=== PATIENT | female | born 1945 | race Two or more races ===

== ENCOUNTER → 2024-08-17 | Outpatient (CLI) | payer MEDICARE, BC, SELFPAY ==
[2024-08-17 11:27] LABS: Basophils # (Auto) 0.1 Thou/mm3 (0.0-0.2); Basophils % (Auto) 1 % (0-2.5); Eosinophils # (Auto) 0.3 Thou/mm3 (0.0-0.5); Eosinophils % (Auto) 3 % (0-10); Hemoglobin 13.3 g/dL (12.0-16.0); Immature Granulocytes % (Auto) 0 % (0-0); Immature Granulocytes Auto 0.01 Thou/mm3 (0.00-0.00); Lymphocytes # (Auto) 4.9 Thou/mm3 (1.0-4.8); Lymphocytes % (Auto) 51 % (10-50); Mean Corpuscular HGB Conc 32.4 g/dl (31.0-37.0); Mean Corpuscular Hemoglobin 29.8 pg (25.0-35.0); Mean Corpuscular Volume 92 fL (80-100); Monocytes # (Auto) 0.7 Thou/mm3 (0.0-0.8); Monocytes % (Auto) 7 % (0-12); Neutrophils # (Auto) 3.8 Thou/mm3 (1.8-7.7); Neutrophils % (Auto) 39 % (37-80); Nucleated Red Blood Cell % 0 /100 WBC (0); Platelet Count 227 Thou/mm3 (140-440); RDW Standard Deviation 45.5 fL (36.4-46.3); Red Blood Count 4.46 Miln/mm3 (4.00-5.20); White Blood Count 9.8 Thou/mm3 (3.6-11.0)
[2024-08-17 11:37] LABS: Glucose Estimated Average 154 mg/dL (80-131)
[2024-08-17 11:44] LABS: Alanine Aminotransferase 14 U/L (10-49); Albumin, Serum 4.8 gm/dL (3.4-4.8); Alkaline Phosphatase 124 U/L (46-116); Anion Gap 9 (7-16); Aspartate Amino Transferase 23 U/L (0-34); BUN/Creatinine Ratio 18 Ratio (12-20); Bilirubin,Total 0.3 mg/dL (0.3-1.2); Blood Urea Nitrogen 30 mg/dL (9-23); Calcium 9.8 mg/dL (8.3-10.6); Calcium (Corrected) 9.8 mg/dL (8.5-10.1); Cardiac Risk Estimate 2.6 RATIO (3.7-5.6); Chloride 105 mMol/L (98-107); Cholesterol 248 mg/dL (132-200); Creatinine (Component) 1.7 mg/dL (0.6-1.3); Free T4 (Free Thyroxine) 1.38 ng/dL (0.89-1.76); Globulin 2.4 gm/dL (2.3-3.5); Glucose 108 mg/dL (74-106); HDL Cholesterol 97 mg/dL (40-60); LDL Cholesterol,Calculated 120 mg/dL (0-130); Osmolality,Calculated 288 (275-295); Potassium 4.2 mMol/L (3.4-5.1); Sodium 141 mMol/L (136-145); Thyroid Stimulating Hormone 0.93 uIU/mL (0.55-4.78); Total Protein 7.2 gm/dL (5.7-8.2); Triglycerides 155 mg/dL (30-150); eGFR 31 See Note
== END | disposition home or self-care (01) ==
PROVIDERS: PCP Family Medicine; Referring Provider Family Medicine; Visit Provider Family Medicine
DX: N18.4 Chronic kidney disease, stage 4 (severe) (principal); E03.9 Hypothyroidism, unspecified; E11.65 Type 2 diabetes mellitus with hyperglycemia
CPT/HCPCS: 36415; 80053; 80061; 83036; 84439; 84443; 85025

== ENCOUNTER → 2024-11-21 | Outpatient (CLI) | payer MEDICARE, BC, SELFPAY ==
[2024-11-21 14:57] LABS: Anion Gap 11 (7-16); BUN/Creatinine Ratio 24 Ratio (12-20); Blood Urea Nitrogen 43 mg/dL (9-23); Calcium 9.6 mg/dL (8.3-10.6); Carbon Dioxide 24.5 mMol/L (20.0-31.0); Chloride 107 mMol/L (98-107); Creatinine (Component) 1.8 mg/dL (0.6-1.3); Glucose 319 mg/dL (74-106); Osmolality,Calculated 305 (275-295); Potassium 4.1 mMol/L (3.4-5.1); Sodium 142 mMol/L (136-145); eGFR 29 See Note
[2024-11-21 15:23] LABS: Glucose Estimated Average 177 mg/dL (80-131); Hemoglobin A1C 7.8 % Hgb (4.8-6.0)
== END | disposition home or self-care (01) ==
LOC: COPL 14:06
PROVIDERS: PCP Family Medicine; Referring Provider Family Medicine; Visit Provider Family Medicine
DX: E11.65 Type 2 diabetes mellitus with hyperglycemia (principal); E78.00 Pure hypercholesterolemia, unspecified; N18.32 Chronic kidney disease, stage 3b; E11.22 Type 2 diabetes mellitus with diabetic chronic kidney disease
CPT/HCPCS: 36415; 80048; 83036

== ENCOUNTER → 2025-02-07 | Outpatient (CLI) | payer MEDICARE, BC, SELFPAY ==
[2025-02-07 12:45] LABS: Glucose Estimated Average 180 mg/dL (80-131); Hemoglobin A1C 7.9 % Hgb (4.8-6.0)
[2025-02-07 12:49] LABS: Anion Gap 11 (7-16); BUN/Creatinine Ratio 21 Ratio (12-20); Blood Urea Nitrogen 38 mg/dL (9-23); Calcium 9.4 mg/dL (8.3-10.6); Carbon Dioxide 24.8 mMol/L (20.0-31.0); Chloride 106 mMol/L (98-107); Creatinine (Component) 1.8 mg/dL (0.6-1.3); Glucose 185 mg/dL (74-106); Osmolality,Calculated 297 (275-295); Potassium 4.2 mMol/L (3.4-5.1); Sodium 142 mMol/L (136-145); eGFR 29 See Note
== END | disposition home or self-care (01) ==
PROVIDERS: PCP Family Medicine; Referring Provider Family Medicine; Visit Provider Family Medicine
DX: E11.22 Type 2 diabetes mellitus with diabetic chronic kidney disease (principal); N18.4 Chronic kidney disease, stage 4 (severe); E11.65 Type 2 diabetes mellitus with hyperglycemia
CPT/HCPCS: 36415; 80048; 83036

== ENCOUNTER 2025-04-18 01:44 | Emergency (ER) | payer MEDICARE, BC, SELFPAY ==
[2025-04-18 02:04] VITALS: BP 127/76; PULSE 72; RESP 18; TEMP 36.4; O2SAT 98
--- NOTE | 2025-04-18 03:00 | PD.EDSOB ---
ED SOB =RME/HPI General Chief Complaint: General Adult/Misc Complain Stated Complaint: FAMILY STATES PT WOKE IN A PANIC Time Seen by Provider: 04/18/25 02:49 Arrival date/time: 04/18/25 01:44 RME / HPI RME / HPI Narrative: See MDM for HPI documentation. Related Data Home Medications ?Medication ?Instructions ?Recorded ?Confirmed insulin lispro 100 unit/mL 4 - 10 unit subcut BID 09/22/18 03/31/22 subcutaneous solution (Humalog U-100 Insulin) omeprazole 40 mg capsule,delayed 40 mg PO QDAY 10/08/21 03/31/22 release insulin glargine 100 unit/mL (3 10 unit subcut QAM 03/31/22 03/31/22 mL) subcutaneous pen (Lantus Solostar U-100 Insulin) levothyroxine 50 mcg tablet 1 tab PO QAM 03/31/22 03/31/22 linagliptin 5 mg tablet (Tradjenta) 1 tab PO QDAY 03/31/22 03/31/22 paroxetine HCl 10 mg tablet 1 tab PO QDAY 03/31/22 03/31/22 pen needle, diabetic 32 gauge x 03/31/22 03/31/2232 (BD Chelita 2nd Gen Pen Needle) Previous Rx's ?Medication ?Instructions ?Recorded aspirin 81 mg capsule 81 mg PO QDAY #30 caps 04/01/22 albuterol sulfate 90 mcg/actuation 2 puff inhalation Q6H PRN 04/18/25 aerosol inhaler shortness of breath or wheezing #8.5 grams azithromycin 500 mg tablet 500 mg PO QDAY 3 days #3 tabs 04/18/25 (Zithromax TRI-AYAAN) cefdinir 300 mg capsule 300 mg PO BID #14 caps 04/18/25 Allergies Allergy/AdvReac Type Severity Reaction Status Date / Time No Known Allergies Allergy Verified 04/18/25 01:52 Review of Systems Review of Systems Systems Reviewed: All systems reviewed, normal except as documented Past Medical History Past Medical History NEUROLOGIC: Positive Neurological Disorders (neck pain); Negative Cerebrovascular Accident, Transient Ischemic Attacks (TIA), Dementia, Alzheimer's Disease, Parkinson's Disease, Brain Tumor, Meningitis, Seizures, Epilepsy, Multiple Sclerosis, Cerebral Palsy, Amyotrophic Lateral Sclerosis (ALS/Deirdre Gehrig's), Guillain-[place] Syndrome, Spina Bifida, Paralysis, Peripheral Neuropathy, Yepez's Palsy, Subdural Hematoma, Migraine, Head Trauma, Spinal Cord Injury or Traumatic Brain Injury CARDIAC: Positive Cardiac Disorders and Hypertension; Negative Myocardial Infarction, Cardiac Arrhythmia, Atrial Fibrillation, Angina, Heart Murmur, Coronary Artery Disease, Atherosclerotic Heart Disease, Peripheral Vascular Disease, Hypercholesterolemia, Aneurysm, Congestive Heart Failure, Congenital Heart Disease, Valvular Heart Disease, Rheumatic Fever, Cardiomyopathy, Edema, Pericarditis, Cellulitis, Deep Vein Thrombosis, Hypotension or Varicose Veins RESPIRATORY: Positive Bronchitis and Pneumonia (covid); Negative Chronic Obstructive Pulmonary Disease (COPD), Asthma, Emphysema, Pulmonary Fibrosis, Cystic Fibrosis, Tuberculosis, Pulmonary Embolism, Pulmonary Edema or Sleep Apnea GASTROINTESTINAL: Positive Gastrointestinal Disorders, Gall Bladder Disease (cholecystectomy) and Diverticulosis; Negative Hepatitis, Cirrhosis, Pancreatitis, Celiac Disease, Gastrointestinal Bleed, Esophageal Varices, Oates's Esophagus, Colitis, Ulcerative Colitis, Diverticulitis, Ulcer, Colorectal Cancer, Irritable Bowel, Crohn's Disease, Obstructive Bowel, Hiatal Hernia, Hemorrhoids, Gastroesophageal Reflux Disease or Obesity GENITOURINARY: Positive Genitourinary Disorders and Renal Disease; Negative Kidney Stones, Polycystic Kidney Disease, Neurogenic Bladder, Inguinal Hernia, Dialysis, Prostate Cancer or Benign Prostatic Hyperplasia REPRODUCTIVE: Positive Previous Pregnancies (); Negative Breast Cancer, Endometriosis, Pelvic Inflammatory Disease, Testicular Cancer or Uterine Prolapse MUSCULOSKELETAL: Positive Musculoskeletal Disorders and Arthritis; Negative Muscular Dystrophy, Myasthenia Gravis, Marfan's Syndrome, Bone Cancer, Rheumatoid Arthritis, Osteoporosis, Degenerative Disk Disease, Gout, Scoliosis, Carpal Tunnel Syndrome, Fibromyalgia, Fractures, Degenerative Joint Disease, Osteomyelitis or Poliovirus ENT: Positive Cataracts; Negative Glaucoma, Blind, Retinal Detachment, Macular Degeneration, Ear Infection, Deafness, Head Trauma or Eye Prosthesis ENDOCRINE: Positive Endocrine Disorders, Diabetes Mellitus Type 2 and Hyperthyroidism; Negative Diabetes Mellitus Type 1, Hypoglycemia, Beeson's Syndrome, Morrow's Disease, Hypothyroidism, Parathyroid Disease, Pituitary Disease, Systemic Lupus Erythematosus, Syndrome of Inappropriate Antidiuretic Hormone (SIADH), Adrenal Disease or Graves' Disease HEMATOLOGIC: Positive Blood Disorders and Anemia; Negative Leukemia, Hemophilia, Thalassemia, Sickle Cell Disease or Clotting Problems PSYCHO/SOCIAL: Positive Depression and Eating Disorder (very little intake); Negative Psychiatric Problems, Schizophrenia, Recreational Drug Use, Bipolar Disorder, Anxiety, Behavior Problems, Self-Mutilation, Attention Deficit Disorder, Attention Deficit Hyperactivity Disorder, Depression or Post Traumatic Stress Disorder OTHER HISTORY: Positive Hospitalization, Falls, Chicken Pox and Measles; Negative Autoimmune Disease, Down Syndrome, Autism, Developmental Delay, Shingles, Blood Transfusions, Anesthesia Reactions, Organ Transplant, Chemotherapy, Radiation Therapy, Hyperbaric Therapy, MRSA, VRSA, Vancomycin-Resistant Enterococci, Human Immunodeficiency Virus (HIV), Mumps, Rubella ([place]an Measles), Pertussis, Clostridium Difficile, Cancer, Breast Cancer, Cervical Cancer, Colorectal Cancer, Lung Cancer, Ovarian Cancer, Prostate Cancer or Testicular Cancer Family History FAMILY HISTORY: Positive Family Cardiac Disorders (MOTHER- HTN), Family Gastrointestinal Problems (colon cancer), Family Cancer (FATHER- PROSTATE, sister had stomach cancer) and Family Surgery (gallbladder surgeries, colon cancer removal in her father.); Negative Family Psychiatric Problems, Family Respiratory Disorders or Family Anesthesia Reaction Surgical History SURGICAL: Positive Abdominal Surgery, Lumpectomy (LEFT BREAST BX), Tubal Ligation and Section (X3); Negative Cardiac Surgery, Open Heart Surgery, Coronary Artery Bypass Graft, Valve Replacement, Vascular Surgery, Coronary Stent, Cardiac Catheterization, Pacemaker, Angiogram, Auto Implanted Cardiovert Defib, Carotid Endarterectomy, Endocrine Surgery, Thyroidectomy, Ear Surgery, Tympanostomy Tube, Eye Surgery, Nose Surgery, Oral Surgery, Tonsillectomy, Adenoidectomy, Cochlear Implant, Corneal Transplant, Throat Surgery, Tracheostomy, Gastric Bypass Surgery, Gastrostomy, Bowel Surgery, Joint Replacement, Amputation, Open Reduction Internal Fixation, Arthroscopy, Neurologic Surgery, Brain Shunt, Mastectomy, Hysterectomy or Organ Transplant Social History SMOKING STATUS: Never smoker SUBSTANCE USE: does not use ED Exam Narrative Physical exam: See [facility] for physical exam documentation. Course Quality Measures none Orders Category Date Time Status Bedside COVID-19 Antigen Test NOW Care 04/18/25 03:06 Completed Bedside Influenza A&B Antigen Test NOW Care 04/18/25 03:06 Completed EKG (ED ONLY) *Do not use* NOW Care 04/18/25 03:07 Completed Saline [Insert IV] NOW Care 04/18/25 03:06 Completed Straight [In and Out Catheter] X1 Care 04/18/25 03:[address] chest abdomen pelvis wo Stat Exams 04/18/25 03:[address] head/brain wo con Stat Exams 04/18/25 03:07 Completed EKG (ED Only) Stat Exams 04/18/25 03:07 Draft XR chest 1V portable Stat Exams 04/18/25 03:07 Completed BNP [B-Type Natriuretic Peptide] Stat Lab 04/18/25 03:20 Completed Beta Hydroxybutyrate Stat Lab 04/18/25 03:20 Completed Bilirubin,Direct Stat Lab 04/18/25 03:20 Completed CBC Stat Lab 04/18/25 03:20 Completed CMP [Comprehensive Metabolic Panel] Stat Lab 04/18/25 03:20 Completed CRP [C-Reactive Protein] Stat Lab 04/18/25 03:20 Completed ESR [Sed Rate (ESR)] Stat Lab 04/18/25 03:20 Completed Hemoglobin A1C [Glycohemoglobin w (eAG)] Stat Lab 04/18/25 03:08 Completed Lipase Stat Lab 04/18/25 03:20 Completed Magnesium Stat Lab 04/18/25 03:20 Completed Procalcitonin Stat Lab 04/18/25 03:20 Completed TSH [Thyroid Stimulating Hormone] Stat Lab 04/18/25 03:20 Completed Troponin I Stat Lab 04/18/25 03:20 Completed UA, C/S IF [Urinalysis, C/S if Indicated] Stat Lab 04/18/25 04:16 Completed Albuterol/Ipratr Rt Damaris [Duoneb Rt Damaris] Med 04/18/25 05:05 Discontinued 3 ml INH X1 ONE Azithromycin Po [Zithromax PO] Med 04/18/25 05:05 Discontinued 500 mg PO X1 ONE MethylPREDNISolone.* [SoluMEDROL Inj] Med 04/18/25 05:05 Discontinued 125 mg IVP X1 ONE Ondansetron Inj [Zofran Inj] Med 04/18/25 03:06 Discontinued 4 mg IVP X1 ONE Sodium Chloride 0.9% 1000 ml [Ns] 1,000 ml Med 04/18/25 03:06 Discontinued IV 999 mls/hr cefTRIAXone/D5w 1gm IV premix [Rocephin/D5w 1gm IV Med 04/18/25 05:05 Discontinued premix] 1 g in 50 ml IV X1 Vital Signs Vital signs: Vital Signs Temperature 97.5 F 04/18/25 02:04 Pulse Rate 72 04/18/25 02:04 Respiratory Rate 18 04/18/25 02:04 Blood Pressure 127/76 04/18/25 02:04 Pulse Oximetry (%) 98 04/18/25 02:04 Oxygen Delivery Method Room Air 04/18/25 02:04 Shortness of Breath / Dyspnea MDM Narrative MDM Narrative:: This section includes all my notes and documentations, including HPI, PE, and ED course. 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 No significant cough, chest pain, or abdominal pain. Blood sugar at home was 98, so son gave the patient sugar drink . No other complaints reported. ROS: All negative except as documented in HPI. Physical Exam: General: Alert and oriented X 2. No acute distress when remaining still. Eyes: Conjunctivae and lids clear. PERRL. EOMI. ENT: No nasal congestion. Neck: Supple. Heart: RRR. Lungs: No respiratory distress. Good air movement. No rhonchi, wheezing, rales. Abdomen: Soft and nontender. Normal bowel sounds. No distension. No rebound or guarding. Back: No CVA tenderness. Skin: Warm and dry. Neuro: Alert and oriented X 2. Cranial nerves II to XII grossly normal. No peripheral motor deficits. I reviewed all diagnostic test results. My interpretation of the EKG is sinus rhythm with nonspecific ST-T changes. My interpretation of the chest x-ray is infiltrates. My review of the CT head report is NAD. My review of the CT chest abdomen pelvis report: Consolidation in the lingula and right middle lobe. Blood tests remarkable for WBC 14.1, Creatinine 1.7, Glucose 218. UA unremarkable. COVID/Influenza negative. At this point, diagnoses include pneumonia. Treatment here included IV fluid, Zofran, Solumedrol, Rocephine, Azithromycin, Duoneb. Significant improvement noted. Recommend outpatient management. Based on my best medical judgment, made decision no further evaluation or treatment indicated at this time. Patient understands and agrees to the discharge instructions customized and printed, see below. Discharge instructions from Dr. Clark: --After extensive evaluation, there is no life-threatening condition. Such as stroke or brain tumor or heart attack. --But we have Pneumonia. --No physical exertion for 3 days to help rest the lungs. ?No exposure to smoking or pets or dust or humidity. --Zithromax and Cefdinir to kill the germs causing the Pneumonia. --Albuterol 2 puffs every 4-6 hours as needed for cough or shortness of breath. --See a private doctor 04/20/2025 for recheck. Ask to review all test results and official radiology reports, to make sure you receive all necessary follow-ups and monitoring. Ask for help until we are completely better. --Seek immediate medical care with worsening or with any concerns. Christiano Clark MD Patient data External records reviewed:: [facility] previous records (Per chart review, patient was seen here on 03/31/22 for acute coronary syndrome.) Clinical information provided by:: family Social determinants that could affect healthcare access:: none Patient has the following chronic illnesses:: dementia, DM How is presenting disease/condition affected by chronic disease/condition?: uneffected by Evaluation data The following diagnostics were reviewed and interpreted by me:: lab results, radiology exam(s) and EKG tracing(s) (My interpretation of the EKG is: Sinus rhythm (77 bpm) with nonspecific ST-T changes. Christiano Clark MD) Lab and/or radiology exams considered but not ordered:: none Interpretation Summary: I reviewed all diagnostic test results. My interpretation of the EKG is sinus rhythm with nonspecific ST-T changes. My interpretation of the chest x-ray is infiltrates. My review of the CT head report is NAD. My review of the CT chest abdomen pelvis report: Consolidation in the lingula and right middle lobe. Blood tests remarkable for WBC 14.1, Creatinine 1.7, Glucose 218. UA unremarkable. COVID/Influenza negative. Medications / Prescriptions Medications or Prescriptions considered but not ordered:: non3 Medication administrations:: Medication Administration History Discontinued Medications Albuterol/Ipratropium (Albuterol/Ipratropium (Duoneb) Rt Damaris 3 Ml Nebu) 3 ml INH X1 ONE Stop: 04/18/25 05:06 Last Admin: 04/18/25 05:18 Dose: 3 ml Documented By: Azithromycin (Azithromycin 250 Mg Tablet) 500 mg PO X1 ONE Stop: 04/18/25 05:06 Last Admin: 04/18/25 05:23 Dose: 500 mg Documented By: SF Sodium Chloride (Ns) 1,000 mls @ 999 mls/hr IV .Q1H1M ONE Stop: 04/18/25 04:06 Last Infusion: 04/18/25 05:24 Dose: Infused Documented By: Admin: 04/18/25 03:40 Dose: 999 mls/hr Documented By: JAMEY Ceftriaxone Sodium/Dextrose (Rocephin/D5w 1gm Iv Premix) 1 g in 50 mls @ 100 mls/hr IV X1 ONE Stop: 04/18/25 05:34 Last Infusion: 04/18/25 06:14 Dose: Infused Documented By: Admin: 04/18/25 05:23 Dose: 100 mls/hr Documented By: JAMEY Methylprednisolone Sodium Succinate (Methylprednisolone Sod Succ 62.5 Mg/Ml 2ml Vial) 125 mg IVP X1 ONE Stop: 04/18/25 05:06 Last Admin: 04/18/25 05:23 Dose: 125 mg Documented By: JAMEY Ondansetron HCl (Ondansetron Inj 2 Mg/Ml Inj 2 Ml) 4 mg IVP X1 ONE; Protocol Stop: 04/18/25 03:07 Last Admin: 04/18/25 03:16 Dose: 4 mg Documented By: ASHLEY IV fluid, Zofran, Solumedrol, Rocephine, Azithromycin, Duoneb Consultations Consultation(s) initiated? (list below): No Diagnosis Shortness of Breath Differential Diagnosis: acute exacerbation of chronic obstructive airways disease, congestive heart failure, community acquired pneumonia, asthma with exacerbation, pulmonary embolism and other (CVA, brain tumor, COVID, influenza, anxiety, UTI, sepsis) Most likely diagnosis given after review of the tests above:: Pneumonia Admission Indicated Admission indicated?: not indicated Explain why admission is indicated or not indicated:: With significant improvement and no condition needing emergent intervention, there was no indication for admission. Admission Request Was there a request for admission?: No Disposition Plan Disposition Plan: Discharge Discharge Attestation Discharge Attestation: The patient and all family members were given an opportunity to ask questions and understood the discharge instructions. Discharge instructions specifically effects, indications for sooner follow up or return to the emergency department, and the expected course of current diagnosis. Patient condition: Stable Discharge Plan Plan Patient Disposition: HOME (Self Care) Prescriptions/Referrals Prescriptions/Med Rec: New albuterol sulfate 90 mcg/actuation HFA aerosol inhaler 2 puff inhalation Q6H PRN (Reason: shortness of breath or wheezing) Qty: 8.5 0RF cefdinir 300 mg capsule 300 mg PO BID Qty: 14 0RF azithromycin [Zithromax TRI-AYAAN] 500 mg tablet 500 mg PO QDAY 3 Days Qty: 3 0RF No Action omeprazole 40 mg capsule,delayed release(DR/EC) 40 mg PO QDAY Patient Comments: TAKE ONE CAPSULE BY MOUTH TWICE DAILY FOR GASTRITIS AND HEARTBURN insulin lispro [Humalog U-100 Insulin] 100 unit/mL Solution 4 - 10 unit SUBCUT BID paroxetine HCl 10 mg tablet 1 tab PO QDAY Patient Comments: TAKE ONE TABLET BY MOUTH EVERY DAY levothyroxine 50 mcg tablet 1 tab PO QAM Patient Comments: TAKE 1 TABLET BY MOUTH EVERY DAY IN THE MORNING ON AN EMPTY STOMACH insulin glargine [Lantus Solostar U-100 Insulin] 100 unit/mL (3 mL) insulin pen 10 unit SUBCUT QAM Patient Comments: ADMINISTER 10 UNITS UNDER THE SKIN IN THE MORNING AT BREAKFAST (DME) pen needle, diabetic [BD Chelita 2nd Gen Pen Needle] 32 gauge x 5/32 needle Patient Comments: USE DIRECTED Tradjenta 5 mg tablet 1 tab PO QDAY Patient Comments: TAKE ONE TABLET BY MOUTH EVERY DAY FOR DIABETES aspirin 81 mg capsule 81 mg PO QDAY Qty: 30 0RF Referrals: Kelly Escalera MD [Primary Care Provider] - In 1 week Problem List Clinical Impression: Pneumonia Patient/Caregiver Discharge Instructions Discharge Activity: activity as tolerated Education Materials: ED Pneumonia (Adult) Additional Instructions: Discharge instructions from Dr. Clark: --After extensive evaluation, there is no life-threatening condition.? Such as stroke or brain tumor or heart attack. --But we have Pneumonia. --No physical exertion for 3 days to help rest the lungs. ?No exposure to smoking or pets or dust or humidity. --Zithromax and Cefdinir to kill the germs causing the Pneumonia. --Albuterol 2 puffs every 4-6 hours as needed for cough or shortness of breath. --See a private doctor 04/20/2025 for recheck. Ask to review all test results and official radiology reports, to make sure you receive all necessary follow-ups and monitoring. Ask for help until we are completely better. --Seek immediate medical care with worsening or with any concerns. Instrucciones de robert del Dr. Clark: --Tras alexey evaluaci?n exhaustiva, no se observa ninguna afecci?n potencialmente mortal, eyad un derrame cerebral, un tumor cerebral o un infarto. --Jackie tenemos neumon?a. --No realizar esfuerzo f?sico zain 3 d?as para ayudar a los pulmones a descansar. --No exponerse al humo, a mascotas, al polvo ni a la humedad. --Zithromax y Cefdinir para eliminar los g?rmenes que causan la neumon?a. --Albuterol: 2 inhalaciones cada 4-6 horas, seg?n sea necesario, para la tos o la dificultad para respirar. --Consulte con un m?dico particular el 20/04/2025 para alexey nueva evaluaci?n. Solicite la revisi?n de todos los resultados de las pruebas y los informes radiol?gicos oficiales para asegurarse de recibir todos los seguimientos y la monitorizaci?n necesarios. Solicite ayuda hasta que la enfermedad mejore por completo. --Busque atenci?n m?dica inmediata si presenta empeoramiento o si tiene alguna inquietud. Print Language: Hungarian Stand Alone Forms: Lisette Award Info., Patient Portal Info Letter
--- NOTE | 2025-04-18 03:07 | EKG_ITS ---
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1945 Requested By: Christiano Flores Order Number: [id number] Reading MD: Christiano Flores Measurements Intervals [place] Rate: 77 P: 43 PA: 178 QRS: -8 QRSD: 96 T: 7 QT: 319 QTc: 362 Interpretive Statements SINUS RHYTHM WITH OCCASIONAL SUPRAVENTRICULAR PREMATURE COMPLEXES LOW QRS VOLTAGE IN PRECORDIAL LEADS [QRS DEFLECTION < 1.0 mV IN CHEST LEADS] POSSIBLE ANTERIOR MYOCARDIAL INFARCTION , PROBABLY OLD [30 ms Q WAVE IN V3/V4, OR R < 0.2 mV IN V4] INFERIOR MYOCARDIAL INFARCTION , OF INDETERMINATE AGE [40+ ms Q WAVE AND/OR ST/T ABNORMALITY IN II/aVF] Compared to ECG 04/01/2022 11:32:28 No significant changes /store/S0/[id number].pdf
--- NOTE | 2025-04-18 03:07 | XR_ITS ---
Examination: CT chest, without intravenous contrast. CT abdomen, without intravenous contrast. CT pelvis, without intravenous contrast. 2-D sagittal and coronal reconstructions. 3-D reconstructions. Date and time of exam:April 18, 2025, 0327 hours INDICATIONS: Shortness of breath and chest pain abdominal pain tonight CTDI vol (mgy) 10.4. DLP (MGycm)667. Technique: Multiple CT images, 3.0 mm slice thickness, obtained chest, abdomen, pelvis, with the high-resolution 64 slice scanner.. Sagittal and coronal 2-D reconstructions are obtained. 3-D reconstructions Low dose protocols were performed. One or more of the following dose reduction techniques were used; automated exposure control, adjustment of the mA and/or KV according to patient size, use of iterative reconstruction technique. Findings: No thoracic aortic aneurysm dilatation Pulmonary artery segments are not enlarged. Pericardial effusion, anteriorly measuring 4 mm and at the right base of the heart measuring 15 mm No paratracheal tracheobronchial or bronchopulmonary adenopathy Nodular scarring at the lung apices Small granuloma in the right lower lobe No lobar pneumonia or pulmonary edema The liver is irregular in contour Surgical clips in the upper right abdomen Spleen is nonenlarged Common bile duct is enlarged 12 mm No renal or ureteral calculi Minimal right hydronephrosis Aorta normal size No bowel obstruction No pericecal inflammatory change No diverticulitis. Atrophic uterus Urinary bladder intact Severe osteopenia with diffuse thoracic and lumbar degenerative disc disease IMPRESSION: Pericardial effusion as above No mediastinal lymphadenopathy. No nahun lobar pneumonia and no pulmonary edema. Enlarged common bile duct, recommend hepatobiliary sonography follow-up Minimal right hydronephrosis, consider urinary tract infection
--- NOTE | 2025-04-18 03:07 | XR_ITS ---
Examination: AP chest single view Technique one AP portable upright chest single view Date and time: April 18, 2025 0311 hours, comparison March 31, 2022 INDICATIONS: Shortness of breath and diaphoresis today. FINDINGS: Mild enlargement cardiac contour. No pneumonia or pulmonary edema. Prominent osteopenia IMPRESSION: No pneumonia or pulmonary edema.
--- NOTE | 2025-04-18 03:07 | XR_ITS ---
Examination: CT brain head without contrast. 2-D sagittal coronal reconstructions Date and time of exam:April 18, 2025, 0326 hours INDICATIONS: Onset altered mental status this morning. CTDI: vol (mGy):46.7 DLP: (mGycm):864. Technique: Multiple CT axial sections of the brain have been obtained, 5 mm slice thickness. Contrast has not been administered. 2-D sagittal, coronal reconstructions have been obtained Low dose protocols were performed. One or more of the following dose reduction techniques were used; automated exposure control, adjustment of the mA and/or KV according to patient size, use of iterative reconstruction technique. Findings: No significant ventricular enlargement. Intra-axial or extra-axial hemorrhage density is not seen. No mass effect or midline shift Basal cisterns are not remarkable. Fourth ventricle is midline. Cranial vault intact. Impression: Negative for acute hemorrhage, mass effect or midline shift Advise clinical correlation and follow up accordingly
[2025-04-18] MEDS: ONDANSETRON INJ 2 MG/ML INJ 2 ML 4 MG IVP (03:16)
[2025-04-18] MEDS: SODIUM CHLORIDE 0.9% 1000 ML 1,000 ML 999 ML IV (03:40)
[2025-04-18 03:46] LABS: Basophils # (Auto) 0.1 Thou/mm3 (0.0-0.2); Basophils % (Auto) 0 % (0-2.5); Eosinophils # (Auto) 0.1 Thou/mm3 (0.0-0.5); Eosinophils % (Auto) 1 % (0-10); Hematocrit 41.7 % (36.0-46.0); Hemoglobin 13.4 g/dL (12.0-16.0); Immature Granulocytes Auto 0.07 Thou/mm3 (0.00-0.00); Lymphocytes # (Auto) 2.2 Thou/mm3 (1.0-4.8); Lymphocytes % (Auto) 15 % (10-50); Mean Corpuscular HGB Conc 32.1 g/dl (31.0-37.0); Mean Corpuscular Hemoglobin 29.5 pg (25.0-35.0); Mean Corpuscular Volume 92 fL (80-100); Monocytes # (Auto) 1.0 Thou/mm3 (0.0-0.8); Monocytes % (Auto) 7 % (0-12); Neutrophils # (Auto) 10.7 Thou/mm3 (1.8-7.7); Neutrophils % (Auto) 76 % (37-80); Nucleated Red Blood Cell # 0.00 Thou/mm3 (0.00-0.00); Nucleated Red Blood Cell % 0 /100 WBC (0); Platelet Count 172 Thou/mm3 (140-440); RDW Standard Deviation 48.3 fL (36.4-46.3); Red Blood Count 4.54 Miln/mm3 (4.00-5.20); White Blood Count 14.1 Thou/mm3 (3.6-11.0)
[2025-04-18 03:48] LABS: Beta Hydroxybutyrate 0.6 mmol/L (<0.6)
[2025-04-18 03:58] LABS: Sed Rate (ESR) 29 mm/hr (0-30)
[2025-04-18 04:15] LABS: Glucose Estimated Average 177 mg/dL (80-131); Hemoglobin A1C 7.8 % Hgb (4.8-6.0)
[2025-04-18 04:20] LABS: Alanine Aminotransferase 21 U/L (10-49); Albumin, Serum 4.4 gm/dL (3.4-4.8); Albumin/Globulin Ratio 2.1 (1.2-2.2); Alkaline Phosphatase 131 U/L (46-116); Anion Gap 13 (7-16); Aspartate Amino Transferase 31 U/L (0-34); BUN/Creatinine Ratio 21 Ratio (12-20); Bilirubin,Direct 0.1 mg/dL (0.0-0.3); Bilirubin,Total 0.5 mg/dL (0.3-1.2); Blood Urea Nitrogen 35 mg/dL (9-23); C-Reactive Protein < 0.5 mg/dL (0.0-0.9); Calcium 9.8 mg/dL (8.3-10.6); Calcium (Corrected) 9.8 mg/dL (8.5-10.1); Carbon Dioxide 24.5 mMol/L (20.0-31.0); Chloride 104 mMol/L (98-107); Creatinine (Component) 1.7 mg/dL (0.6-1.3); Globulin 2.1 gm/dL (2.3-3.5); Glucose 218 mg/dL (74-106); Lipase 32 U/L (12-53); Magnesium 2.1 mg/dL (1.6-2.6); Osmolality,Calculated 296 (275-295); Potassium 3.5 mMol/L (3.4-5.1); Procalcitonin 0.05 ng/ml (0.0-0.49); Sodium 141 mMol/L (136-145); Thyroid Stimulating Hormone 0.96 uIU/mL (0.55-4.78); Total Protein 6.5 gm/dL (5.7-8.2); Troponin I < 0.020 ng/mL (0.0-0.045); eGFR 31 See Note
[2025-04-18 04:31] LABS: Collection Type, Urine Clean Catch
[2025-04-18 04:36] VITALS: BP 115/61; PULSE 80; RESP 18; TEMP 36.6; O2SAT 98
[2025-04-18 04:38] LABS: Bacteria,Urine Rare; Bilirubin,Urine Negative (Negative); Blood,Urine Negative (Negative); Clarity,Urine Clear (Clear/Hazy); Color,Urine Colorless (Lt Yel-Yel); Culture Indicated,Urine Not Indicated; Glucose, Urine 4+ (Negative); Ketones,Urine Negative (Negative); Leukocyte Esterase,Urine Positive (Negative); Nitrite,Urine Negative (Negative); PH,Urine 6.5 (5.0-7.0); Protein,Urine Negative (Neg - Trace); RBC,Urine 1 /hpf (0-3); Specific Gravity,Urine 1.008 (1.001-1.035); Squamous Epithelial Cell,Urine < 1 /hpf (0-5); Urobilinogen,Urine Negative mg/dL (0.0-1.0); WBC,Urine 7 /hpf (0-5)
[2025-04-18 04:42] LABS: B-Type Natriuretic Peptide 20 pg/mL (0-100)
--- NOTE | 2025-04-18 04:42 | PRELIM_ITS ---
CT scan of the chest, abdomen and pelvis without intravenous contrast (axial sections with sagittal and coronal reformats) April 18, 2025 at 0327 hours Clinical History: Shortness of breath, abdominal pain Comparison: No prior study is available for comparison. Findings: Bilateral apical lung scarring. Small consolidation in the lingula. Small consolidation in the right middle lobe. There is no pleural effusion or pneumothorax. The aorta is within normal limits for age on this noncontrast study. No evidence of mediastinal mass or lymphadenopathy. There is a small complex pericardial effusion. The spleen, pancreas, adrenals and kidneys are unremarkable on this noncontrast study. Status postcholecystectomy. No evidence of bowel obstruction. No evidence of appendicitis. The urinary bladder is unremarkable. There is no free fluid or free air. Degenerative changes of the imaged portions of the spine. Chronic multilevel disc disease. No acute fractures. Coronary arteries calcifications. The uterus and ovaries are within normal limits. Fecal loading. Impression: 1. Small complex pericardial effusion suspicious for pericarditis. 2. Small consolidation in the lingula and right middle lobe, atelectasis versus scarring versus small foci of pneumonia. Please, correlate clinically. 3. Cirrhosis. 4. Coronary arteries calcifications. If acute myocardial infarction is clinically suspected consider correlation with troponin. 5. Fecal loading. Report Electronically Signed By: Isac Ann 04/18/2025 4:41:02 AM [EST]
--- NOTE | 2025-04-18 04:45 | PRELIM_ITS ---
CT scan of the head without intravenous contrast (axial sections with sagittal and coronal reformats); April 18, 2025 at 0326 hours Clinical history: AMS Comparison: None. Findings: There is no evidence of intracranial hemorrhage, mass effect or midline shift. There are periventricular white matter hypodensities, compatible with chronic small vessel ischemia. There is severe volume loss. The calvarium is unremarkable. The mastoid air cells and the visualized paranasal sinuses are clear. Congenital nonfusion of the posterior arch of C1. Impression: No evidence of intracranial hemorrhage, mass effect or midline shift. Chronic small vessel ischemia and volume loss. Aspect score 10. Report Electronically Signed By: Isac Ann 04/18/2025 4:44:14 AM [EST]
[2025-04-18] MEDS: ALBUTEROL/IPRATROPIUM (Duoneb) RT SOL 3 ML NEBU INH (05:18)
[2025-04-18 05:21] VITALS: PULSE 75; RESP 19; O2SAT 99
[2025-04-18] MEDS: AZITHROMYCIN 250 MG TABLET 500 MG PO (05:23)
[2025-04-18] MEDS: MethylPREDNISolone SOD SUCC 62.5 MG/ML 2ML VIAL 125 MG IVP (05:23)
[2025-04-18] MEDS: cefTRIAXone/D5w 1gm IV premix 1 G/50 ML BAG IV (05:23)
== END 2025-04-18 06:15 | disposition home or self-care (01) ==
PROVIDERS: Emergency Provider Emergency Medicine; PCP Family Medicine
DX: J18.9 Pneumonia, unspecified organism (principal); R41.82 Altered mental status, unspecified
CPT/HCPCS: 36415; 70450; 71045; 71250; 74176; 80053; 81001; 82010; 82248; 83036; 83690; 83735; 83880; 84145; 84443; 84484; 85025; 85652; 86140; 87400; 87811; 93005; 94640; 96361; 96365; 96375; 99283; A9270; J0696; J2405; J2919; J7030

== ENCOUNTER → 2025-05-09 | Outpatient (CLI) | payer MEDICARE, BC, MEDICAID, SELFPAY ==
[2025-05-09 12:09] LABS: Basophils # (Auto) 0.1 Thou/mm3 (0.0-0.2); Basophils % (Auto) 1 % (0-2.5); Eosinophils # (Auto) 0.3 Thou/mm3 (0.0-0.5); Eosinophils % (Auto) 3 % (0-10); Hematocrit 38.6 % (36.0-46.0); Hemoglobin 12.5 g/dL (12.0-16.0); Immature Granulocytes Auto 0.02 Thou/mm3 (0.00-0.00); Lymphocytes # (Auto) 3.0 Thou/mm3 (1.0-4.8); Lymphocytes % (Auto) 35 % (10-50); Mean Corpuscular HGB Conc 32.4 g/dl (31.0-37.0); Mean Corpuscular Hemoglobin 30.3 pg (25.0-35.0); Mean Corpuscular Volume 94 fL (80-100); Monocytes # (Auto) 0.7 Thou/mm3 (0.0-0.8); Monocytes % (Auto) 8 % (0-12); Neutrophils # (Auto) 4.5 Thou/mm3 (1.8-7.7); Neutrophils % (Auto) 53 % (37-80); Nucleated Red Blood Cell # 0.00 Thou/mm3 (0.00-0.00); Nucleated Red Blood Cell % 0 /100 WBC (0); Platelet Count 172 Thou/mm3 (140-440); RDW Standard Deviation 51.3 fL (36.4-46.3); Red Blood Count 4.13 Miln/mm3 (4.00-5.20); White Blood Count 8.5 Thou/mm3 (3.6-11.0)
[2025-05-09 12:21] LABS: Glucose Estimated Average 169 mg/dL (80-131); Hemoglobin A1C 7.5 % Hgb (4.8-6.0)
[2025-05-09 12:36] LABS: Anion Gap 12 (7-16); BUN/Creatinine Ratio 22 Ratio (12-20); Blood Urea Nitrogen 38 mg/dL (9-23); Calcium 9.4 mg/dL (8.3-10.6); Carbon Dioxide 27.2 mMol/L (20.0-31.0); Chloride 103 mMol/L (98-107); Creatinine (Component) 1.7 mg/dL (0.6-1.3); Free T4 (Free Thyroxine) 1.45 ng/dL (0.89-1.76); Glucose 155 mg/dL (74-106); Osmolality,Calculated 295 (275-295); Potassium 4.7 mMol/L (3.4-5.1); Sodium 142 mMol/L (136-145); Thyroid Stimulating Hormone 0.55 uIU/mL (0.55-4.78); eGFR 31 See Note
== END | disposition home or self-care (01) ==
PROVIDERS: PCP Family Medicine; Referring Provider Family Medicine; Visit Provider Family Medicine
DX: E11.22 Type 2 diabetes mellitus with diabetic chronic kidney disease (principal); N18.4 Chronic kidney disease, stage 4 (severe); E03.9 Hypothyroidism, unspecified; E11.65 Type 2 diabetes mellitus with hyperglycemia
CPT/HCPCS: 36415; 80048; 83036; 84439; 84443; 85025

== ENCOUNTER → 2025-08-07 | Outpatient (CLI) | payer MEDICARE, BC, MEDICAID, SELFPAY ==
[2025-08-07 12:43] LABS: Anion Gap 11 (7-16); BUN/Creatinine Ratio 16 Ratio (12-20); Blood Urea Nitrogen 28 mg/dL (9-23); Calcium 9.8 mg/dL (8.3-10.6); Carbon Dioxide 28.7 mMol/L (20.0-31.0); Cardiac Risk Estimate 1.8 RATIO (3.7-5.6); Chloride 106 mMol/L (98-107); Cholesterol 172 mg/dL (132-200); Creatinine (Component) 1.7 mg/dL (0.6-1.3); Glucose 131 mg/dL (74-106); HDL Cholesterol 95 mg/dL (40-60); LDL Cholesterol,Calculated 55 mg/dL (0-130); Osmolality,Calculated 298 (275-295); Potassium 4.1 mMol/L (3.4-5.1); Sodium 146 mMol/L (136-145); Triglycerides 111 mg/dL (30-150); eGFR 31 See Note
[2025-08-07 13:02] LABS: Glucose Estimated Average 166 mg/dL (80-131); Hemoglobin A1C 7.4 % Hgb (4.8-6.0)
== END | disposition home or self-care (01) ==
PROVIDERS: PCP Family Medicine; Referring Provider Family Medicine; Visit Provider Family Medicine
DX: E11.22 Type 2 diabetes mellitus with diabetic chronic kidney disease (principal); N18.32 Chronic kidney disease, stage 3b; E11.65 Type 2 diabetes mellitus with hyperglycemia; E78.2 Mixed hyperlipidemia
CPT/HCPCS: 36415; 80048; 80061; 83036